=== PATIENT | female | born 1970 | race American Indian/Alaskan Native ===

== ENCOUNTER 2017-04-04 11:15 | Emergency (ER) | payer MEDICAID ==
[2017-04-04 11:26] VITALS: O2SAT 99
[2017-04-04] MEDS ORDERED: Sodium Chloride 0.9% 1,000 ML IV STA (12:01)
[2017-04-04] MEDS ORDERED: Sodium Chloride 0.9% 1,000 ML ONE (12:32)
[2017-04-04 12:40] LABS: BASO % 0.5 % (0.0-2.0); EOS % 0.5 % (0.0-4.0); HEMOGLOBIN 13.6 g/dL (11.0-16.0); LYMPH # 0.5 K/uL (1.0-4.3); LYMPH % 11.9 % (20.0-40.0); MEAN CELL VOLUME 83.1 fL (81.0-99.0); MEAN CORPUSCULAR HEMOGLOBIN 29.1 pg (27.0-31.0); MEAN PLATELET VOLUME 8.5 fL (7.2-11.7); MONO # 0.4 K/uL (0.0-0.8); MONO % 9.9 % (0.0-10.0); NEUT # 3.4 K/uL (1.8-7.0); NEUT % 77.2 % (50.0-75.0); NRBC % 0.1 % (0.0-2.0); RBC 4.67 Mil/uL (3.80-5.20); RED CELL DISTRIBUTION WIDTH 12.7 % (11.5-14.5); WHITE BLOOD COUNT 4.4 K/uL (4.8-10.8)
[2017-04-04 12:43] LABS: HCG,QUALITATIVE URINE NEGATIVE (NEGATIVE)
[2017-04-04 12:44] LABS: SQUAMOUS EPITHIAL 1 /hpf (0-5); URINE BACTERIA OCC (<OCC); URINE BILIRUBIN NEGATIVE (NEGATIVE); URINE BLOOD NEGATIVE (NEGATIVE); URINE CLARITY Clear (Clear); URINE COLOR Colorless (YELLOW); URINE GLUCOSE (UA) NORMAL (Normal); URINE LEUKOCYTE ESTERASE NEG Leu/uL (Negative); URINE NITRATE NEGATIVE (NEGATIVE); URINE PROTEIN NEGATIVE (NEGATIVE); URINE UROBILINOGEN NORMAL mg/dL (0.2-1.0)
--- NOTE | 2017-04-04 13:08 | C.PDOC ---
History Of Present Illness 46yo female presents to ER with complaints of diarrhea for the past 3 days. Patient also reports mild abdominal cramping and states she had 3 episodes of diarrhea today. She denies any vomiting and states her abdominal pain has improved. She denies any fever and also denies any recent sick contacts or foreign travels. Patient has no other medical complaints. Time Seen by Provider: 04/04/17 11:30 Chief Complaint (Nursing): GI Problem History Per: Patient History/Exam Limitations: no limitations Onset/Duration Of Symptoms: Days (3) Location Of Pain/Discomfort: Diffuse Associated Symptoms: Diarrhea Abnormal Vaginal Bleeding: No Past Medical History Reviewed: Historical Data, Nursing Documentation, Vital Signs Vital Signs: Last Vital Signs Temp 98.4 F 04/04/17 15:00 Pulse 65 04/04/17 15:00 Resp 18 04/04/17 16:05 BP 110/71 04/04/17 15:00 Pulse Ox 99 04/04/17 16:04 - Medical History PMH: No Chronic Diseases Denies: Chronic Kidney Disease Surgical History: No Surg Hx Family History: States: No Known Family Hx, Unknown Family Hx - Social History Hx Tobacco Use: No Hx Alcohol Use: No Hx Substance Use: No - Immunization History Hx Tetanus Toxoid Vaccination: No Hx Influenza Vaccination: Yes Hx Pneumococcal Vaccination: No Review Of Systems Except As Marked, All Systems Reviewed And Found Negative. Constitutional: Negative for: Fever, Chills Gastrointestinal: Positive for: Diarrhea. Negative for: Nausea, Vomiting Physical Exam - Physical Exam Appears: Non-toxic, No Acute Distress Skin: Warm, Dry Head: Atraumatic, Normacephalic Eye(s): bilateral: Normal Inspection Neck: Supple Chest: Symmetrical Cardiovascular: Rhythm Regular Respiratory: Normal Breath Sounds, No Wheezing Gastrointestinal/Abdominal: Normal Exam, Bowel Sounds, Soft, No Tenderness, No Distention Extremity: Normal ROM, No Pedal Edema Neurological/Psych: Oriented x3, Normal Speech, Normal Cognition ED Course And Treatment - Laboratory Results Result Diagrams: 04/04/17 12:33 04/04/17 13:14 O2 Sat by Pulse Oximetry: 99 (RA) Pulse Ox Interpretation: Normal Progress Note: Patient was treatde with IVF, Tylenol, Zofran and Donnatol with improvement. On re-evaluation patient feels better, tolerates po and is stable to be d/c home with PMD follow up. Medical Decision Making Medical Decision Making: impression: Diarrhea x 3 days Plan: -- Labs -- IV Fluids Disposition - Disposition Referrals: Terri Howell MD [Staff Provider] - Disposition: HOME/ ROUTINE Disposition Time: 16:00 Condition: IMPROVED Additional Instructions: Follow up with PMD within 1-2 days. Return to ED if feel worse. 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 - Scribe Statement The provider has reviewed the documentation as recorded by the Scribe Provider Scribe Attestation: All medical record entries made by the Scribe were at my direction and personally dictated by me. I have reviewed the chart and agree that the record accurately reflects my personal performance of the history, physical exam, medical decision making, and the department course for this patient. I have also personally directed, reviewed, and agree with the discharge instructions and disposition.
[2017-04-04 13:46] LABS: ALB/GLOB RATIO 1.1 (1.0-2.1); ALBUMIN 3.6 g/dL (3.5-5.0); ALT/SGPT 41 U/L (9-52); AST/SGOT 36 U/L (14-36); BLOOD UREA NITROGEN 7 mg/dL (7-17); CALCIUM 8.1 mg/dl (8.6-10.4); GFR AFRICAN-AMERICAN > 60; GFR NON-AFRICAN AMERICAN > 60; LIPASE 47 U/L (23-300)
[2017-04-04] MEDS ORDERED: Potassium Chloride 20 mEq ER Tab PO STA (14:31)
[2017-04-04] MEDS ORDERED: Potassium Chloride 20 mEq ER Tab PO ONE (14:40)
[2017-04-04 15:02] VITALS: BP 110/71; PULSE 65; TEMP 98.4
[2017-04-04 16:25] VITALS: RESP 18
== END 2017-04-04 16:05 | disposition home or self-care (01) ==
LOC: C.ER 11:15
DX: K52.9 Noninfective gastroenteritis and colitis, unspecified (principal)
CPT/HCPCS: 80053; 81001; 83690; 84703; 85025; 96360; 99285; J7040

== ENCOUNTER 2017-04-13 23:39 | Emergency (ER) | payer MEDICAID ==
[2017-04-13 23:45] VITALS: BP 130/85; PULSE 92; RESP 20; TEMP 98.5; O2SAT 98
[2017-04-13] MEDS ORDERED: Albuterol-Ipratrop 3 mg / 0.5 (3 ml) UD INH STA (23:50)
--- NOTE | 2017-04-13 23:53 | C.PDOC ---
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 She also reports malaise and decreased appetite. Denies any chest pain, SOB or abdominal pain. Patient has been taking Promethazine cough syrup but reports cough persists. Time Seen by Provider: 04/13/17 23:45 Chief Complaint (Nursing): Flu-like Symptoms Past Medical History Reviewed: Historical Data, Nursing Documentation, Vital Signs Vital Signs: Last Vital Signs Temp 98.5 F 04/13/17 23:43 Pulse 92 H 04/13/17 23:43 Resp 20 04/14/17 00:30 BP 130/85 04/13/17 23:43 Pulse Ox 98 04/14/17 02:08 - Medical History PMH: Denies: Chronic Kidney Disease Surgical History: No Surg Hx Family History: States: Unknown Family Hx - Social History Hx Tobacco Use: No Hx Alcohol Use: No Hx Substance Use: No - Immunization History Hx Tetanus Toxoid Vaccination: No Hx Influenza Vaccination: Yes Hx Pneumococcal Vaccination: No Review Of Systems Constitutional: Positive for: Fever ENT: Positive for: Nose Congestion Cardiovascular: Negative for: Chest Pain Respiratory: Positive for: Cough. Negative for: Shortness of Breath Gastrointestinal: Negative for: Abdominal Pain Physical Exam - Physical Exam Appears: Well, Non-toxic, No Acute Distress Skin: Normal Color, Warm, Dry, No Rash Head: Atraumatic, Normacephalic Eye(s): bilateral: Normal Inspection, EOMI Ear(s): Bilateral: Normal (no erythema) Nose: Normal, No Flaring, No Discharge Oral Mucosa: Moist Throat: Normal, No Erythema, No Exudate Neck: Normal ROM, Supple Chest: Symmetrical Cardiovascular: Rhythm Regular, No Murmur Respiratory: Normal Breath Sounds, No Wheezing Extremity: Bilateral: Atraumatic, Normal Color And Temperature Neurological/Psych: Oriented x3, Normal Speech Gait: Steady ED Course And Treatment O2 Sat by Pulse Oximetry: 98 (RA) Pulse Ox Interpretation: Normal Medical Decision Making Medical Decision Making: Patient with multi-symptom complaints, likely viral. Patient has received Flu vaccine this season. Patient appears non-toxic and in no respiratory distress. She has no fever. She is requesting nebulizer treatment. Ordered duoneb and prednisone. Rx given. Patient advised to rest, drink fluids and take medications for supportive treatment. Patient stable for discharge and given follow up instructions. Disposition Counseled Patient/Family Regarding: Diagnosis, Need For Followup, Rx Given - Disposition Referrals: Terri Howell MD [Staff Provider] - Disposition: HOME/ ROUTINE Disposition Time: 23:51 Condition: STABLE Additional Instructions: You have viral upper respiratory infection. Take Tylenol or Motrin alternating every 4-6 hours for Fever 100.4F or higher. Rest and drink plenty of fluids. May use cool mist humidifier or vaporizer in room. Try taking over the counter antihistamine, Decongestant or Cough medicine as needed every 6-8 hours. Follow up with your primary medical doctor or clinic in 1 week for further evaluation. Prescriptions: Benzonatate [Tessalon Perles] 100 mg PO TID #30 sgl Prednisone 50 mg PO DAILY #4 tablet Instructions: Viral Upper Respiratory Infection, Adult (DC) Forms: [employer] (Cambodian), Work Excuse - POA Present On Arrival: None - Clinical Impression Clinical Impression: Influenza-like illness, Upper respiratory infection
[2017-04-13] MEDS ORDERED: Albuterol-Ipratrop 3 mg / 0.5 (3 ml) UD ONE (23:55)
== END 2017-04-14 00:30 | disposition home or self-care (01) ==
LOC: C.ER 23:39
DX: J11.1 Influenza due to unidentified influenza virus with other respiratory manifestations (principal)

== ENCOUNTER 2017-08-27 05:20 | Emergency (ER) | payer OTHER, MEDICAID ==
[2017-08-27 05:32] VITALS: O2SAT 99
--- NOTE | 2017-08-27 06:24 | C.PDOC ---
History Of Present Illness 47 year old female presents to the ER with complaint of right wrist pain that radiates to the forearm. 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 She reports the pain worsens with movement. Patient denies rashes, fever, or direct trauma. Time Seen by Provider: 08/27/17 05:21 Chief Complaint (Nursing): Upper Extremity Problem/Injury History Per: Patient History/Exam Limitations: no limitations Onset/Duration Of Symptoms: Hrs Current Symptoms Are (Timing): Still Present Severity: Mild Exacerbating Factor(s): Movement Recent travel outside of the [place]: No Past Medical History Reviewed: Historical Data, Nursing Documentation, Vital Signs Vital Signs: Last Vital Signs Temp 98.0 F 08/27/17 06:56 Pulse 60 08/27/17 06:56 Resp 18 08/27/17 06:56 BP 125/85 08/27/17 06:56 Pulse Ox 99 08/27/17 06:56 - Medical History PMH: No Chronic Diseases Family History: States: No Known Family Hx - Social History Hx Tobacco Use: No Hx Alcohol Use: No Hx Substance Use: No - Immunization History Hx Tetanus Toxoid Vaccination: No Hx Influenza Vaccination: Yes Hx Pneumococcal Vaccination: No Review Of Systems Cardiovascular: Negative for: Chest Pain, Palpitations Respiratory: Negative for: Cough, Shortness of Breath Musculoskeletal: Positive for: Arm Pain, Hand Pain Skin: Negative for: Rash Physical Exam - Physical Exam Appears: Well, Non-toxic Skin: Normal Color, Warm, Dry Head: Normacephalic Eye(s): bilateral: Normal Inspection Oral Mucosa: Moist Cardiovascular: Rhythm Regular Respiratory: Normal Breath Sounds, No Rales, No Rhonchi, No Wheezing Extremity: Normal ROM (x4), Tenderness (Mildly tenderness at right wrist and forearm), Capillary Refill (<2 seconds all digits ), No Deformity, No Swelling Extremity: Bilateral: Normal Color And Temperature Pulses: Left Radial: Normal, Right Radial: Normal Neurological/Psych: Oriented x3, Normal Motor, Normal Sensation Gait: Steady ED Course And Treatment O2 Sat by Pulse Oximetry: 99 (Room air) Pulse Ox Interpretation: Normal - Other Rad Right forearm x-ray X-Ray: Interpreted by Me, Viewed By Me Interpretation: No acute fractures or dislocation. Right wrist x-ray X-Ray: Interpreted by Me, Viewed By Me Interpretation: No acute fractures or dislocation. Progress Note: Xrays of right wrist and forearm ordered and reviewed. Patient given PO tylenol. Reevaluation Time: 06:25 Reassessment Condition: Improved (Patient reassessed, is resting comfortably. Xrays neg for acute bondy injury. Patient placed in removable cockup splint by therapy tech for comfort. She was instructed to follow up with orthopedics within 1 week, and understands she should return to ED if symptoms worsen.) Disposition Counseled Patient/Family Regarding: Diagnosis, Need For Followup, Rx Given - Disposition Referrals: [facility] [Outside] Elkin Byers III, MD [Staff Provider] - Terri Howell MD [Staff Provider] - Disposition: HOME/ ROUTINE Disposition Time: 06:25 Condition: STABLE Additional Instructions: FOLLOW UP WITH ORTHOPEDICS WITHIN 1 WEEK USE MEDICATION NEEDED RETURN TO ER IF SYMPTOMS WORSEN Prescriptions: Naproxen 375 mg PO BID PRN #20 tablet PRN Reason: pain Instructions: Wrist Sprain (DC), Common Wrist Injuries (DC) Forms: [employer] (Mongolian), Work Excuse Print Language: MALIAN - Clinical Impression Clinical Impression: Right wrist sprain - Scribe Statement The provider has reviewed the documentation as recorded by the Scribpalomo Saab All medical record entries made by the Scribe were at my direction and personally dictated by me. I have reviewed the chart and agree that the record accurately reflects my personal performance of the history, physical exam, medical decision making, and the department course for this patient. I have also personally directed, reviewed, and agree with the discharge instructions and disposition.
[2017-08-27 06:58] VITALS: BP 125/85; PULSE 60; RESP 18; TEMP 98
--- NOTE | 2017-08-27 12:46 | RAD ---
Right forearm three views History: Pain. Comparison: None available. Findings: No evidence for acute displaced fracture or dislocation. Impression: Negative acute. If pain persists, consider MRI.
--- NOTE | 2017-08-27 12:54 | RAD ---
Right wrist three views History: Right wrist pain. Comparison: None available. Findings: No evidence for acute displaced fracture or dislocation. More limited evaluation of the bases of the metacarpal bones given the suboptimal patient positioning. Impression: Negative acute. If pain persists, consider MRI.
== END 2017-08-27 06:57 | disposition home or self-care (01) ==
LOC: C.ER 05:20
DX: S63.501A Unspecified sprain of right wrist, initial encounter (principal); X50.9XXA Other and unspecified overexertion or strenuous movements or postures, initial encounter; Y92.239 Unspecified place in hospital as the place of occurrence of the external cause; Y99.0 Civilian activity done for income or pay

== ENCOUNTER 2018-02-04 07:16 | Emergency (ER) | payer OTHER, MEDICAID ==
[2018-02-04 08:14] LABS: SQUAMOUS EPITHIAL 3 /hpf (0-5); URINE BACTERIA FEW (<OCC); URINE BILIRUBIN NEGATIVE (NEGATIVE); URINE BLOOD 2+ (NEGATIVE); URINE CLARITY Hazy (Clear); URINE COLOR Yellow (YELLOW); URINE GLUCOSE (UA) NORMAL (Normal); URINE LEUKOCYTE ESTERASE 1+ Leu/uL (Negative); URINE PROTEIN NEGATIVE (NEGATIVE); URINE UROBILINOGEN NORMAL mg/dL (0.2-1.0)
--- NOTE | 2018-02-04 08:31 | C.PDOC ---
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 Denies any physical complaints. Time Seen by Provider: 02/04/18 07:27 Chief Complaint (Nursing): Needle Stick History Per: Patient History/Exam Limitations: no limitations Onset/Duration Of Symptoms: Hrs Current Symptoms Are (Timing): Still Present Recent travel outside of the [place]: No Past Medical History Reviewed: Historical Data, Nursing Documentation, Vital Signs Vital Signs: Last Vital Signs Temp 98.7 F 02/04/18 07:18 Pulse 70 02/04/18 07:18 Resp 18 02/04/18 07:18 BP 122/81 02/04/18 07:18 Pulse Ox 100 02/04/18 07:18 - Medical History PMH: No Chronic Diseases Surgical History: No Surg Hx Family History: States: Unknown Family Hx - Social History Hx Tobacco Use: No Hx Alcohol Use: No Hx Substance Use: No - Immunization History Hx Tetanus Toxoid Vaccination: No Hx Influenza Vaccination: Yes Hx Pneumococcal Vaccination: No Review Of Systems Constitutional: Negative for: Fever, Chills Gastrointestinal: Negative for: Nausea, Vomiting, Abdominal Pain, Diarrhea Skin: Negative for: Rash Neurological: Negative for: Weakness, Numbness Physical Exam - Physical Exam Appears: Well, Non-toxic, No Acute Distress Skin: Normal Color, Warm, Dry, No Rash Head: Atraumatic, Normacephalic Eye(s): bilateral: Normal Inspection, PERRL, EOMI Oral Mucosa: Moist Neck: Normal ROM, Supple Cardiovascular: Rhythm Regular Respiratory: Normal Breath Sounds, No Rales, No Rhonchi, No Wheezing Gastrointestinal/Abdominal: Bowel Sounds (Active ), Soft, No Tenderness Extremity: Normal ROM Extremity: Bilateral: Atraumatic, Normal Color And Temperature, Normal ROM Pulses: Left Radial: Normal, Right Radial: Normal Neurological/Psych: Oriented x3, Normal Speech, Normal Motor Gait: Steady ED Course And Treatment - Laboratory Results Result Diagrams: 02/04/18 08:42 02/04/18 08:42 O2 Sat by Pulse Oximetry: 100 (RA) Pulse Ox Interpretation: Normal Medical Decision Making Medical Decision Making: Plan: * Blood work * Urinalysis * Rapid plasma reagin tetanus is up to date/ Disposition - Disposition Referrals: Terri Howell MD [Staff Provider] - Disposition: HOME/ ROUTINE Disposition Time: 08:46 Condition: STABLE Additional Instructions: Follow up with employee health on Tuesday. 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 - Scribe Statement The provider has reviewed the documentation as recorded by the Scribpalomo Lau All medical record entries made by the Jetibpalomo were at my direction and person ally dictated by me. I have reviewed the chart and agree that the record accurately reflects my personal performance of the history, physical exam, medical decision making, and the department course for this patient. I have also personally directed, reviewed, and agree with the discharge instructions and disposition.
[2018-02-04 08:47] LABS: BASO % 0.5 % (0.0-2.0); EOS # 0.1 K/uL (0.0-0.7); LYMPH # 1.2 K/uL (1.0-4.3); LYMPH % 21.5 % (20.0-40.0); MEAN CELL VOLUME 84.5 fL (81.0-99.0); MEAN CORPUSCULAR HEMOGLOBIN 28.4 pg (27.0-31.0); MEAN CORPUSCULAR HGB CONC 33.6 g/dL (33.0-37.0); MEAN PLATELET VOLUME 8.3 fL (7.2-11.7); MONO # 0.4 K/uL (0.0-0.8); MONO % 6.8 % (0.0-10.0); NEUT # 3.8 K/uL (1.8-7.0); NEUT % 69.2 % (50.0-75.0); RBC 4.22 Mil/uL (3.80-5.20); RED CELL DISTRIBUTION WIDTH 13.7 % (11.5-14.5); WHITE BLOOD COUNT 5.5 K/uL (4.8-10.8)
[2018-02-04 08:58] VITALS: BP 120/84; PULSE 68; RESP 16; TEMP 98.1
[2018-02-04 09:03] LABS: ALB/GLOB RATIO 1.3 (1.0-2.1); ALT/SGPT 38 U/L (9-52); AST/SGOT 35 U/L (14-36); BLOOD UREA NITROGEN 12 mg/dL (7-17); CALCIUM 9.6 mg/dl (8.6-10.4); GFR NON-AFRICAN AMERICAN > 60
[2018-02-04 09:33] LABS: HEPATITIS B SURFACE AG Negative (NEGATIVE)
[2018-02-04 09:39] LABS: HEPATITIS A IGM NEGATIVE (NEGATIVE); HEPATITIS B CORE AB NEGATIVE (NEGATIVE)
[2018-02-04 09:50] LABS: HEPATITIS C ANTIBODY NEGATIVE (NEGATIVE)
[2018-02-06 20:19] VITALS: O2SAT 100
== END 2018-02-04 08:55 | disposition home or self-care (01) ==
LOC: C.ER 07:16
DX: Z77.21 Contact with and (suspected) exposure to potentially hazardous body fluids (principal); W46.0XXA Contact with hypodermic needle, initial encounter; Y99.0 Civilian activity done for income or pay

== ENCOUNTER → 2018-03-12 01:39 | Emergency (ER) | payer MEDICAID, OTHER | END | disposition left against medical advice (07) | LOC: C.ER 01:39 | DX: Z02.89 Encounter for other administrative examinations (principal) ==

== ENCOUNTER 2018-03-12 06:30 | Outpatient (CLI) | payer MEDICAID | END 2018-03-12 06:31 | disposition home or self-care (01) | LOC: C.RADH 06:30 | DX: Z00.01 Encounter for general adult medical examination with abnormal findings (principal); J20.9 Acute bronchitis, unspecified; Z12.31 Encounter for screening mammogram for malignant neoplasm of breast; D86.0 Sarcoidosis of lung ==

== ENCOUNTER 2018-04-27 07:13 | Outpatient (CLI) | payer MEDICAID | END 2018-04-27 07:14 | disposition home or self-care (01) | LOC: C.LAB 07:13 | DX: D86.0 Sarcoidosis of lung (principal); J20.9 Acute bronchitis, unspecified; Z00.01 Encounter for general adult medical examination with abnormal findings; Z12.31 Encounter for screening mammogram for malignant neoplasm of breast ==

== ENCOUNTER 2018-05-11 07:10 | Outpatient (CLI) | payer MEDICAID | END 2018-05-11 07:11 | disposition home or self-care (01) | LOC: C.CTH 07:10 | DX: D86.0 Sarcoidosis of lung (principal); J20.9 Acute bronchitis, unspecified; Z00.01 Encounter for general adult medical examination with abnormal findings; Z12.31 Encounter for screening mammogram for malignant neoplasm of breast ==